=== PATIENT | male | born 1995 | race Caucasian/White ===

== ENCOUNTER 2023-03-28 23:16 | Emergency (ER) | payer MEDICAID ==
[~2023-03-28] VITALS: Ht 172.7 cm; Wt 123.8 kg
[2023-03-28 23:24] VITALS: BP 148/90; PULSE 82; RESP 16; TEMP 98.7; O2SAT 100
[2023-03-29 00:23] LABS: BASOPHILS % 0.7 % (0.0-2.0); EOSINOPHILS % 2.1 % (0.0-5.0); HEMATOCRIT. 43.6 % (42.0-52.0); HEMOGLOBIN. 15.2 g/dL (14.0-18.0); LYMPHOCYTES % 23.4 % (20.0-50.0); MEAN CORPUSCULAR HEMOGLOBIN 31.5 pg (28.0-32.0); MEAN CORPUSCULAR VOLUME 90.3 fL (80.0-94.0); MEAN PLATELET VOLUME 10.9 fl (7.4-10.4); MONOCYTES % 10.9 % (2.0-8.0); NEUTROPHILS % 62.9 % (40.0-76.0); PLATELET 177 x1000/uL (130-400); RED BLOOD CELL COUNT 4.83 mill/uL (4.7-6.1); RED CELL DISTRIBUTION WIDTH 14.3 % (11.6-14.6)
[2023-03-29 00:33] LABS: CHLORIDE 102 mEq/L (98-107)
[2023-03-29 00:37] LABS: CLARITY URINE CLEAR (CLEAR); COLOR URINE YELLOW (YELLOW); KETONES URINE 1+ (NEGATIVE); LEUKOCYTE ESTERASE URINE TRACE (NEGATIVE); NITRITE URINE NEGATIVE (NEGATIVE); OCCULT BLOOD URINE TRACE (NEGATIVE); PH URINE 6.5 (4.5-8.0); PROTEIN URINE NEGATIVE (NEGATIVE); SPECIFIC GRAVITY URINE 1.009 (1.005-1.030)
== END 2023-03-29 03:53 | disposition left against medical advice (07) ==
LOC: ER 23:33
DX: Z53.21 Procedure and treatment not carried out due to patient leaving prior to being seen by health care provider (principal); I49.9 Cardiac arrhythmia, unspecified
CPT/HCPCS: 36415; 80053; 81003; 85025; 93005; 99281

== ENCOUNTER 2024-03-24 05:38 | Emergency (ER) | payer SELFPAY ==
[~2024-03-24] VITALS: Ht 175.3 cm; Wt 105.0 kg
[2024-03-24 05:44] VITALS: O2SAT 99
[2024-03-24] MEDS: ACETAMINOPHEN 325MG TABLET PO ONE (06:14)
[2024-03-24] MEDS ORDERED: IBUP-1525 MT (07:41)
[2024-03-24] MEDS ORDERED: TOPUD MT (07:41)
[2024-03-24] MEDS ORDERED: CEPH500T MT (07:41)
[2024-03-24] MEDS: HYDROCODONE/ACETAMINOPHEN 5/325MG TABLET PO ONE (08:55)
[2024-03-24] MEDS: TETANUS, DIPHTHERIA, PERTUSSIS VAC/PF 0.5ML (>10YR OLD) IM ONE (08:56)
[2024-03-24] MEDS: CEFAZOLIN SODIUM 1000MG/VIAL IM ONE (08:56)
[2024-03-24 10:07] VITALS: BP 126/84; PULSE 77; RESP 22; TEMP 98.2
== END 2024-03-24 10:22 | disposition home or self-care (01) ==
LOC: ER 05:38
DX: S09.90XA Unspecified injury of head, initial encounter (principal); H11.32 Conjunctival hemorrhage, left eye; M79.652 Pain in left thigh; F12.10 Cannabis abuse, uncomplicated; X58.XXXA Exposure to other specified factors, initial encounter; Y93.89 Activity, other specified; Y92.89 Other specified places as the place of occurrence of the external cause; Y99.8 Other external cause status
CPT/HCPCS: 70450; 70486; 90715; 90471; 96372; 99291; J0690; Z7610 ×6; 99285